=== PATIENT | male | born 1990 | race African-American/Black ===

== ENCOUNTER 2025-03-01 05:40 | Emergency (ER) | payer BC ==
[~2025-03-01] VITALS: Ht 195.6 cm; Wt 86.2 kg
[2025-03-01] MEDS ORDERED: ONDANSETRON HCL/PF 4 MG/2 ML VIAL ONE (06:18)
[2025-03-01] MEDS ORDERED: KETOROLAC TROMETHAMINE 15 MG/ML VIAL ONE (06:18)
[2025-03-01] MEDS: ONDANSETRON HCL/PF 4 MG/2 ML VIAL IVP ONE (06:31)
[2025-03-01] MEDS: KETOROLAC TROMETHAMINE 15 MG/ML VIAL IV ONE (06:31)
[2025-03-01] MEDS: IV NS 0.9% 1,000 ML BAG IV ONE (06:31)
[2025-03-01 06:45] LABS: CALCIUM, SERUM 8.7 mg/dL (8.5-10.1); CREATININE 1.1 mg/dL (0.6-1.3); SODIUM SERUM 141.0 mmol/L (136-145); UREA NITROGEN, BLOOD 17.0 mg/dL (7-18)
[2025-03-01 06:50] LABS: ASPARTATE AMINOTRANSFERASE 30.0 U/L (15-37); TOTAL PROTEIN, SERUM 7.9 g/dL (6.4-8.2)
[2025-03-01 07:39] LABS: PLATELET COUNT (AUTO) 170 K/uL (150-450); RED BLOOD CELL COUNT(AUTO) 6.02 MIL/uL (4.5-6.0); RED CELL DISTRIBUTION WIDTH 14.5 % (11.5-15.0); WHITE BLOOD COUNT (AUTO) 9.1 K/uL (4.3-11.0)
[2025-03-01] MEDS ORDERED: ONDA4TAB11 PO (08:04)
[2025-03-01 09:27] VITALS: BP 108/64; TEMP 98.9; O2SAT 98
== END 2025-03-01 09:28 | disposition home or self-care (01) ==
LOC: ER 05:52
DX: R19.7 Diarrhea, unspecified (principal); R11.2 Nausea with vomiting, unspecified; Z60.2 Problems related to living alone
CPT/HCPCS: 99284; 96374; 96361; 96375; 85025; 80048; 83690; 80076; 36415; J1885; J2405